=== PATIENT | male | born 1960 | race Caucasian/White ===

== ENCOUNTER 2019-09-25 10:05 | Observation (INO) | payer BC ==
[2019-09-25] MEDS ORDERED: Diltiazem 25 MG/5 ML SDV IVPUSH ONE (10:28)
[2019-09-25] MEDS: Sodium Chloride 0.9% 10 ML Syringe FLUSH PRN ×2 (10:50→11:33)
[2019-09-25 10:57] LABS: CHLORIDE,CL 102 mmol/L (98-107); SODIUM,NA 140 mmol/L (136-145)
[2019-09-25] MEDS ORDERED: Sodium Chloride 0.9% 1,000 ML IV ONE (11:02)
--- NOTE | 2019-09-25 11:22 | EDM.PDOC ---
ED HPI GENERAL MEDICAL PROBLEM - General Chief Complaint: Chest Pain Stated Complaint: CP, dizziness, afib Time Seen by Provider: 09/25/19 10:16 Source of Information: Reports: Patient History Limitations: Reports: No Limitations - History of Present Illness INITIAL COMMENTS - FREE TEXT/NARRATIVE: Patient reports sudden Afib symptoms that started at 9am. Accompanied by lightheadedness/chest pain/SOB. Has had issues with Afib multiple times over the past 20 years per self report. Had ablation performed two years ago at [facility] and had no further episodes until now. Recently had Metoprolol dose increased from 50-100mg daily. No other med changes. No recent other health changes/injuries/illnesses. No new supplements. No specific trigger for today's episode. - Related Data Allergies Allergy/AdvReac Type Severity Reaction Status Date / Time shellfish derived Allergy Hives Verified 09/25/19 10:17 Home Meds: Home Meds Aspirin 325 mg PO DAILY 02/06/14 [History] Cetirizine [ZyrTEC] 10 mg PO DAILY PRN 02/06/14 [History] Lisinopril 10 mg PO DAILY 02/06/14 [History] Metoprolol Succinate 100 mg PO DAILY 02/06/14 [History] Simvastatin [Zocor] 20 mg PO BEDTIME 09/25/19 [History] amLODIPine [Norvasc] 5 mg PO DAILY 09/25/19 [History] Past Medical History Cardiovascular History: Reports: Afib, Hypertension Endocrine/Metabolic History: Reports: Obesity/BMI 30+, Other (See Below) ( Borderline Type 2 DM) Social & Family History - Tobacco Use Smoking Status *Q: Never Smoker - Caffeine Use Caffeine Use: Reports: Soda - Alcohol Use Alcohol Use History: No Alcohol Use Frequency: Rarely - Recreational Drug Use Recreational Drug Use: No Drug Use in Last 12 Months: No ED ROS GENERAL - Review of Systems Review Of Systems: See Below Constitutional: Reports: No Symptoms HEENT: Reports: No Symptoms Respiratory: Reports: Shortness of Breath. Denies: Wheezing, Pleuritic Chest Pain, Cough, Sputum, Hemoptysis Cardiovascular: Reports: Chest Pain, Lightheadedness, Palpitations. Denies: Syncope GI/Abdominal: Reports: No Symptoms : Reports: No Symptoms Musculoskeletal: Reports: No Symptoms (no acute changes from baseline) Skin: Reports: No Symptoms Neurological: Reports: Dizziness. Denies: Confusion, Headache, Paresthesia, Trouble Speaking, Difficulty Walking, Change in Speech Psychiatric: Reports: No Symptoms ED EXAM, GENERAL - Physical Exam Exam: See Below Exam Limited By: No Limitations General Appearance: Alert, WD/WN, No Apparent Distress, Obese Eye Exam: Bilateral Eye: EOMI, PERRL Nose: No: Nasal Deformity, Nasal Swelling, Nasal Drainage Throat/Mouth: Normal Lips, Normal Voice, No Airway Compromise Head: Atraumatic, Normocephalic Neck: Supple, Non-Tender Respiratory/Chest: No Respiratory Distress, Lungs Clear, Normal Breath Sounds, No Accessory Muscle Use, Chest Non-Tender Cardiovascular: Normal Peripheral Pulses, No Murmur, Irregularly Irregular Peripheral Pulses: 2+: Radial (L), Radial (R) GI/Abdominal: Normal Bowel Sounds, Soft, Non-Tender (Male) Exam: Deferred Rectal (Males) Exam: Deferred Back Exam: Normal Inspection Extremities: Normal Range of Motion, Non-Tender, Normal Capillary Refill, Pedal Edema (mild edema bilateral ankles) Neurological: Alert, Oriented, Normal Cognition, Normal Gait, No Motor/Sensory Deficits Psychiatric: Normal Affect, Normal Mood Skin Exam: Warm, Dry, Intact, Normal Color EKG INTERPRETATION EKG Date: 09/25/19 Time: 10:02 Rhythm: A-Fib Rate (Beats/Min): 116 [place]: Normal P-Wave: Absent QRS: Normal ST-T: Normal QT: Normal Course - Orders/Labs/Meds Orders: Active Orders 24 hr Category Date Time Status EKG Documentation Completion [RC] ASDIRECTED Care 09/25/19 10:17 Ordered Sodium Chloride 0.9% [Saline Flush] Med 09/25/19 10:16 Ordered 10 ml FLUSH ASDIRECTED PRN Saline Lock Insert [OM.PC] Stat Oth 09/25/19 10:16 Ordered Medication Orders Aspirin (Aspirin) 325 mg PO DAILY STEVE Cetirizine HCl (Zyrtec) 10 mg PO DAILY PRN PRN Reason: Allergies Diltiazem HCl (Cardizem Cd) 120 mg PO ONETIME ONE Stop: 09/26/19 12:01 Metoprolol Succinate (Toprol Xl) 100 mg PO DAILY STEVE Sodium Chloride (Saline Flush) 10 ml FLUSH ASDIRECTED PRN PRN Reason: Keep Vein Open Last Admin: 09/25/19 11:33 Dose: 10 ml Admin: 09/25/19 10:50 Dose: 10 ml Labs: Laboratory Tests 09/25/19 09/25/19 09/25/19 Range/Units 10:25 10:25 10:25 WBC 5.3 (4.0-10.2) K/uL RBC 5.02 (4.33-5.41) M/uL Hgb 13.8 (13.1-16.8) g/dL Hct 42.8 (39.0-49.0) % MCV 85.3 (84.0-98.0) fL MCH 27.5 L (28.2-33.3) pg MCHC 32.2 (31.7-36.0) g/dL RDW 13.9 (11.2-14.1) % Plt Count 165 (150-350) K/uL Neut % (Auto) 56.5 (45.0-80.0) % Lymph % (Auto) 30.2 (10.0-50.0) % [place] % (Auto) 9.1 (2.0-14.0) % Eos % (Auto) 4.2 (0.0-5.0) % Baso % (Auto) 0.0 (0.0-2.0) % Neut # (Auto) 2.99 (1.40-7.00) K/uL Lymph # (Auto) 1.60 (0.50-3.50) K/uL [place] # (Auto) 0.48 (0.00-1.00) K/uL Eos # (Auto) 0.22 (0.00-0.50) K/uL Baso # (Auto) 0.00 (0.00-0.20) K/uL D-Dimer, Quantitative 329 (0-400) ng/mL Sodium 140 (136-145) mmol/L Potassium 3.7 (3.5-5.1) mmol/L Chloride 102 (98-107) mmol/L Carbon Dioxide 31.8 (21.0-32.0) mmol/L BUN 20 H (7-18) mg/dL Creatinine 0.97 (0.51-1.17) mg/dL Est Cr Clr Drug Dosing TNP Estimated GFR (MDRD) > 60 mL/min Glucose 130 H (74-106) mg/dL Hemoglobin A1c (4.3-5.7) % Calcium 8.9 (8.5-10.1) mg/dL Magnesium 1.8 (1.8-2.4) mg/dL Total Bilirubin 0.4 (0.2-1.0) mg/dL AST 26 (15-37) U/L ALT 27 (12-78) U/L Alkaline Phosphatase 38 L (46-116) IU/L Troponin I 0.000 (0.000-0.056) ng/mL NT-Pro-B Natriuret Pep 61 (0-125) pg/mL Total Protein 7.2 (6.4-8.2) g/dL Albumin 3.4 (3.4-5.0) g/dL TSH, Ultra Sensitive (0.358-3.740) mIU/mL 09/25/19 09/25/19 Range/Units 10:25 10:25 WBC (4.0-10.2) K/uL RBC (4.33-5.41) M/uL Hgb (13.1-16.8) g/dL Hct (39.0-49.0) % MCV (84.0-98.0) fL MCH (28.2-33.3) pg MCHC (31.7-36.0) g/dL RDW (11.2-14.1) % Plt Count (150-350) K/uL Neut % (Auto) (45.0-80.0) % Lymph % (Auto) (10.0-50.0) % [place] % (Auto) (2.0-14.0) % Eos % (Auto) (0.0-5.0) % Baso % (Auto) (0.0-2.0) % Neut # (Auto) (1.40-7.00) K/uL Lymph # (Auto) (0.50-3.50) K/uL [place] # (Auto) (0.00-1.00) K/uL Eos # (Auto) (0.00-0.50) K/uL Baso # (Auto) (0.00-0.20) K/uL D-Dimer, Quantitative (0-400) ng/mL Sodium (136-145) mmol/L Potassium (3.5-5.1) mmol/L Chloride (98-107) mmol/L Carbon Dioxide (21.0-32.0) mmol/L BUN (7-18) mg/dL Creatinine (0.51-1.17) mg/dL Est Cr Clr Drug Dosing Estimated GFR (MDRD) mL/min Glucose (74-106) mg/dL Hemoglobin A1c 6.5 H (4.3-5.7) % Calcium (8.5-10.1) mg/dL Magnesium (1.8-2.4) mg/dL Total Bilirubin (0.2-1.0) mg/dL AST (15-37) U/L ALT (12-78) U/L Alkaline Phosphatase (46-116) IU/L Troponin I (0.000-0.056) ng/mL NT-Pro-B Natriuret Pep (0-125) pg/mL Total Protein (6.4-8.2) g/dL Albumin (3.4-5.0) g/dL TSH, Ultra Sensitive 1.980 (0.358-3.740) mIU/mL Meds: Medications Generic Name Dose Route Start Last Admin Trade Name Freq PRN Reason Stop Dose Admin Aspirin 325 mg 09/26/19 08:00 Aspirin PO DAILY SETVE Cetirizine HCl 10 mg 09/25/19 12:45 Zyrtec PO DAILY PRN Allergies Diltiazem HCl 120 mg 09/26/19 12:00 Cardizem Cd PO 09/26/19 12:01 ONETIME ONE Metoprolol Succinate 100 mg 09/26/19 08:00 Toprol Xl PO DAILY STEVE Sodium Chloride 10 ml 09/25/19 10:16 09/25/19 11:33 Saline Flush FLUSH 10 ml ASDIRECTED PRN Administration Keep Vein Open Discontinued Medications Generic Name Dose Route Start Last Admin Trade Name Freq PRN Reason Stop Dose Admin Diltiazem HCl 20 mg 09/25/19 10:28 09/25/19 10:50 Diltiazem IVPUSH 09/25/19 10:29 20 mg ONETIME ONE Administration Diltiazem HCl 120 mg 09/25/19 12:43 Cardizem Cd PO 09/25/19 12:44 ONETIME ONE Magnesium Sulfate/Dextrose 1 100 mls @ 100 mls/hr 09/25/19 11:00 09/25/19 11: 32 gm/ Premix IV 09/25/19 11:59 100 mls/hr ONETIME ONE Administration Sodium Chloride 1,000 mls @ 999 mls/hr 09/25/19 11:02 09/25/19 11:32 Normal Saline IV 09/25/19 12:02 999 mls/hr .BOLUS ONE Administration - Re-Assessments/Exams Free Text/Narrative Re-Assessment/Exam: Patient received Cardizem IV shortly after arrival. Pulse rate improved. No further SOB/chest discomfort. Dizziness resolved. BP dropped from medication, IV fluids given. EKG showed Afib/RVR. CBC/Chem/Trop/ddimer ordered. Overall unremarkable. TSH/A1C added. Call placed to [facility] and patient reviewed with on-call Graph[employer] Teacher Dr. Rashid. She recommended observation admission and to continue patient on Cardizem. Will hold Lisinopril/Norvasc to avoid hypotension. Continue Metoprolol. He is recommended to follow up with Cardiology in clinic. Will schedule patient for cardiac echo here next week to assess cardiac function and rule out any thrombus formation. Departure - Departure Time of Disposition: 12:35 Disposition: Refer to Observation Condition: Good Clinical Impression: Atrial fibrillation with RVR - Discharge Information *PRESCRIPTION DRUG MONITORING PROGRAM REVIEWED*: Not Applicable *COPY OF PRESCRIPTION DRUG MONITORING REPORT IN PATIENT ILSA: Not Applicable Sepsis Event Note - Focused Exam Date Exam was Performed: 09/25/19 Time Exam was Performed: 13:34 - Problem List & Annotations (1) Atrial fibrillation with RVR SNOMED Code(s): 277706816164211 Code(s): I48.91 - UNSPECIFIED ATRIAL FIBRILLATION Status: Acute Priority : High Current Visit: Yes Annotation/Comment:: 20 year hx Afib. Ablation performed two years ago to address this and has been free of Afib episodes until today. Good rate response to Cardizem. Will monitor patient overnight and continue oral Cardizem. Patient to have cardiac echo performed next Tuesday to screen for thrombus formation given the Afib episode. Patient reviewed with from [facility] Cardiology who is in agreement with plan. He is to follow up with Cardiology clinic. (2) HTN (hypertension) SNOMED Code(s): 29163909 Code(s): I10 - ESSENTIAL (PRIMARY) HYPERTENSION Status: Acute Priority: Low Current Visit: Yes Annotation/Comment:: Observe trends. Continuing Metoprolol but holding Lisinopril and Norvasc while initiating Cardizem for rate control. Qualifiers: Hypertension type: essential hypertension Qualified Code(s): I10 - Essential (primary) hypertension (3) Obesity SNOMED Code(s): 111229701, 584340980 Code(s): E66.9 - OBESITY, UNSPECIFIED Status: Acute Priority: Low Current Visit: Yes Annotation/Comment:: Dietary changes highly encouraged, including cessation of patient's heavy soda consumption. Qualifiers: Obesity type: unspecified obesity type (4) Diabetes mellitus SNOMED Code(s): 23159111 Code(s): E11.9 - TYPE 2 DIABETES MELLITUS WITHOUT COMPLICATIONS Status: Chronic Priority: Low Current Visit: No Annotation/Comment:: A1C 6.5 Dietary/lifestyle changes encouraged. Not currently under medication therapy Qualifiers: Diabetes mellitus type: type 2 - Problem List Review Problem List Initiated/Reviewed/Updated: Yes - My Orders Last 24 Hours: My Active Orders 09/25/19 10:16 Sodium Chloride 0.9% [Saline Flush] 10 ml FLUSH ASDIRECTED PRN Saline Lock Insert [OM.PC] Stat 09/25/19 10:17 EKG Documentation Completion [RC] ASDIRECTED - Assessment/Plan Admission H&P: Please use this note as an admission H&P Last 24 Hours: My Active Orders 09/25/19 10:16 Sodium Chloride 0.9% [Saline Flush] 10 ml FLUSH ASDIRECTED PRN Saline Lock Insert [OM.PC] Stat 09/25/19 10:17 EKG Documentation Completion [RC] ASDIRECTED Assessment:: as above. Stable and suitable for general supervision. Plan: As above. Anticipate 24-48 hour stay. Lisinopril to be discontinued and Cardizem initiated. Telemetry to continue to follow Afib and and recurrence of RVR.
[2019-09-25] MEDS ORDERED: Diltiazem 120 MG Cap.CD PO ONE ×2 (12:43→15:00)
[2019-09-25] MEDS ORDERED: Cetirizine 10 MG Tab PO PRN (12:45)
[2019-09-25 12:46] LABS: HEMOGLOBIN A1C 6.5 % (4.3-5.7)
[2019-09-26] MEDS: Metoprolol Succinate 50 MG Tab.ER PO SCH (07:29)
[2019-09-26] MEDS: Aspirin 325 MG Tab PO SCH (07:31)
[2019-09-26] MEDS: Sodium Chloride 0.9% 10 ML Syringe FLUSH PRN ×2 (07:32→10:34)
[2019-09-26] MEDS ORDERED: FLU Vacc QS2019-20(6MOS+)/PF 60 MCG/0.5 ML SYRINGE IM ONE (08:00)
[2019-09-26 08:21] LABS: CHLORIDE,CL 103 mmol/L (98-107); SODIUM,NA 139 mmol/L (136-145)
--- NOTE | 2019-09-26 09:40 | PCM.PN ---
- General Info Date of Service: 09/26/19 Admission Dx/Problem (Free Text): 1. Atrial fibrillation with rapid ventricular response 2. Hypertension Functional Status: Reports: Pain Controlled, Tolerating Diet, Ambulating, Urinating. Denies: New Symptoms, Incentive Spirometry Pain Score: 0 - Review of Systems General: Reports: No Symptoms (Good). Denies: Fever, Weakness, Fatigue, Malaise , Chills, Night Sweats, Appetite HEENT: Reports: No Symptoms. Denies: Dysphasia, Ear Pain, Eye Pain, Headaches, Post Nasal Drip, Sinus Congestion, Sore Throat, Rhinitis, Visual Changes Pulmonary: Reports: No Symptoms. Denies: Shortness of Breath, Pleuritic Chest Pain, Cough, Sputum, Hemoptysis, Wheezing Cardiovascular: Reports: No Symptoms. Denies: Chest Pain, Palpitations, Dyspnea on Exertion, Orthopnea, Edema, Lightheadedness Gastrointestinal: Reports: No Symptoms, Other (Normal bowel movements earlier today). Denies: Abdominal Pain, Constipation, Decreased Appetite, Diarrhea, Difficulty Swallowing, Flatus, Hematochezia, Melena, Nausea, Vomiting Genitourinary: Reports: No Symptoms. Denies: Dysuria, Frequency, Burning, Pain , Urgency, Incontinence, Hematuria, Retention, Flank Pain Musculoskeletal: Reports: No Symptoms. Denies: Neck Pain, Shoulder Pain, Arm Pain, Back Pain, Leg Pain Skin: Reports: No Symptoms. Denies: Diaphoresis, Bruising Neurological: Reports: No Symptoms. Denies: Confusion, Dizziness, Headache, Numbness, Paresthesia, Tingling, Weakness Psychiatric: Reports: No Symptoms. Denies: Confusion, Agitation, Cravings, Hallucinations - Patient Data Vitals - Most Recent: Last Vital Signs Temp 36.4 C 09/26/19 07:21 Pulse 87 09/26/19 07:29 Resp 17 09/26/19 07:21 BP 136/80 09/26/19 07:29 Pulse Ox 97 09/26/19 07:21 Vital Signs - 24 hr 09/25/19 09/25/19 09/25/19 10:27 10:58 11:13 Temperature [ Temporal] Pulse, Peripheral Pulse, 112 H 79 74 Peripheral [ Pulse Oximetry] Respiratory 19 15 16 Rate Blood Pressure Blood Pressure [Left Upper Arm ] Blood Pressure 129/89 89/55 L 109/79 [Right Upper Arm] O2 Sat by Pulse 99 93 L 93 L Oximetry 09/25/19 09/25/19 09/25/19 11:30 11:57 12:13 Temperature [ Temporal] Pulse, Peripheral Pulse, 79 75 78 Peripheral [ Pulse Oximetry] Respiratory 18 19 19 Rate Blood Pressure Blood Pressure [Left Upper Arm ] Blood Pressure 102/62 109/63 105/66 [Right Upper Arm] O2 Sat by Pulse 95 95 95 Oximetry 09/25/19 09/25/19 09/25/19 12:30 12:45 12:58 Temperature [ Temporal] Pulse, Peripheral Pulse, 78 75 75 Peripheral [ Pulse Oximetry] Respiratory 19 18 18 Rate Blood Pressure Blood Pressure [Left Upper Arm ] Blood Pressure 103/61 93/65 113/66 [Right Upper Arm] O2 Sat by Pulse 95 95 94 L Oximetry 09/25/19 09/25/19 09/25/19 13:10 14:57 15:14 Temperature [ 37.1 C 37.1 C Temporal] Pulse, 77 Peripheral Pulse, 72 117 H Peripheral [ Pulse Oximetry] Respiratory 17 19 Rate Blood Pressure 117/65 Blood Pressure [Left Upper Arm ] Blood Pressure 108/59 L 151/93 H [Right Upper Arm] O2 Sat by Pulse 95 99 Oximetry 09/25/19 09/25/19 09/25/19 15:33 16:51 19:15 Temperature [ 36.6 C 36.6 C Temporal] Pulse, Peripheral Pulse, 77 82 81 Peripheral [ Pulse Oximetry] Respiratory 14 20 14 Rate Blood Pressure Blood Pressure [Left Upper Arm ] Blood Pressure 117/65 131/86 117/78 [Right Upper Arm] O2 Sat by Pulse 93 L 95 94 L Oximetry 09/25/19 09/26/19 09/26/19 23:12 04:00 07:21 Temperature [ 36.8 C 36.8 C 36.4 C Temporal] Pulse, Peripheral Pulse, 80 81 87 Peripheral [ Pulse Oximetry] Respiratory 16 16 17 Rate Blood Pressure Blood Pressure 143/97 H 149/92 H 136/80 [Left Upper Arm ] Blood Pressure [Right Upper Arm] O2 Sat by Pulse 96 95 97 Oximetry 09/26/19 07:29 Temperature [ Temporal] Pulse, 87 Peripheral Pulse, Peripheral [ Pulse Oximetry] Respiratory Rate Blood Pressure 136/80 Blood Pressure [Left Upper Arm ] Blood Pressure [Right Upper Arm] O2 Sat by Pulse Oximetry Weight - Most Recent: 138.709 kg I&O - Last 24 Hours: Intake & Output 09/25/19 09/26/19 09/26/19 22:59 06:59 14:59 Intake Total 200 600 Balance 200 600 Imaging Impressions - Last 24 Hours: secured entrance monitor shows atrial fibrillation with average heart rate in the 70s to 110s with no ectopy or arrhythmia. Lab Results Last 24 Hours: Laboratory Results - last 24 hr 09/25/19 09/25/19 09/25/19 Range/Units 10:25 10:25 10:25 WBC 5.3 (4.0-10.2) K/uL RBC 5.02 (4.33-5.41) M/uL Hgb 13.8 (13.1-16.8) g/dL Hct 42.8 (39.0-49.0) % MCV 85.3 (84.0-98.0) fL MCH 27.5 L (28.2-33.3) pg MCHC 32.2 (31.7-36.0) g/dL RDW 13.9 (11.2-14.1) % Plt Count 165 (150-350) K/uL Neut % (Auto) 56.5 (45.0-80.0) % Lymph % (Auto) 30.2 (10.0-50.0) % [place] % (Auto) 9.1 (2.0-14.0) % Eos % (Auto) 4.2 (0.0-5.0) % Baso % (Auto) 0.0 (0.0-2.0) % Neut # (Auto) 2.99 (1.40-7.00) K/uL Lymph # (Auto) 1.60 (0.50-3.50) K/uL [place] # (Auto) 0.48 (0.00-1.00) K/uL Eos # (Auto) 0.22 (0.00-0.50) K/uL Baso # (Auto) 0.00 (0.00-0.20) K/uL D-Dimer, Quantitative 329 (0-400) ng/mL Sodium 140 (136-145) mmol/L Potassium 3.7 (3.5-5.1) mmol/L Chloride 102 (98-107) mmol/L Carbon Dioxide 31.8 (21.0-32.0) mmol/L BUN 20 H (7-18) mg/dL Creatinine 0.97 (0.51-1.17) mg/dL Est Cr Clr Drug Dosing TNP Estimated GFR (MDRD) > 60 mL/min Glucose 130 H (74-106) mg/dL Hemoglobin A1c (4.3-5.7) % Calcium 8.9 (8.5-10.1) mg/dL Magnesium 1.8 (1.8-2.4) mg/dL Total Bilirubin 0.4 (0.2-1.0) mg/dL AST 26 (15-37) U/L ALT 27 (12-78) U/L Alkaline Phosphatase 38 L (46-116) IU/L Troponin I 0.000 (0.000-0.056) ng/mL NT-Pro-B Natriuret Pep 61 (0-125) pg/mL Total Protein 7.2 (6.4-8.2) g/dL Albumin 3.4 (3.4-5.0) g/dL TSH, Ultra Sensitive (0.358-3.740) mIU/mL 09/25/19 09/25/19 09/26/19 Range/Units 10:25 10:25 07:14 WBC (4.0-10.2) K/uL RBC (4.33-5.41) M/uL Hgb (13.1-16.8) g/dL Hct (39.0-49.0) % MCV (84.0-98.0) fL MCH (28.2-33.3) pg MCHC (31.7-36.0) g/dL RDW (11.2-14.1) % Plt Count (150-350) K/uL Neut % (Auto) (45.0-80.0) % Lymph % (Auto) (10.0-50.0) % [place] % (Auto) (2.0-14.0) % Eos % (Auto) (0.0-5.0) % Baso % (Auto) (0.0-2.0) % Neut # (Auto) (1.40-7.00) K/uL Lymph # (Auto) (0.50-3.50) K/uL Med[place] # (Auto) (0.00-1.00) K/uL Eos # (Auto) (0.00-0.50) K/uL Baso # (Auto) (0.00-0.20) K/uL D-Dimer, Quantitative (0-400) ng/mL Sodium 139 (136-145) mmol/L Potassium 4.3 (3.5-5.1) mmol/L Chloride 103 (98-107) mmol/L Carbon Dioxide 30.4 (21.0-32.0) mmol/L BUN 14 (7-18) mg/dL Creatinine 0.96 (0.51-1.17) mg/dL Est Cr Clr Drug Dosing 109.72 Estimated GFR (MDRD) > 60 mL/min Glucose 118 H (74-106) mg/dL Hemoglobin A1c 6.5 H (4.3-5.7) % Calcium 8.6 (8.5-10.1) mg/dL Magnesium (1.8-2.4) mg/dL Total Bilirubin (0.2-1.0) mg/dL AST (15-37) U/L ALT (12-78) U/L Alkaline Phosphatase (46-116) IU/L Troponin I 0.000 (0.000-0.056) ng/mL NT-Pro-B Natriuret Pep 904 H (0-125) pg/mL Total Protein (6.4-8.2) g/dL Albumin (3.4-5.0) g/dL TSH, Ultra Sensitive 1.980 (0.358-3.740) mIU/mL 09/26/19 Range/Units 07:14 WBC 6.7 (4.0-10.2) K/uL RBC 5.35 (4.33-5.41) M/uL Hgb 14.5 (13.1-16.8) g/dL Hct 45.4 (39.0-49.0) % MCV 84.9 (84.0-98.0) fL MCH 27.1 L (28.2-33.3) pg MCHC 31.9 (31.7-36.0) g/dL RDW 14.1 (11.2-14.1) % Plt Count 174 (150-350) K/uL Neut % (Auto) 63.8 (45.0-80.0) % Lymph % (Auto) 23.8 (10.0-50.0) % [place] % (Auto) 7.9 (2.0-14.0) % Eos % (Auto) 4.2 (0.0-5.0) % Baso % (Auto) 0.3 (0.0-2.0) % Neut # (Auto) 4.30 (1.40-7.00) K/uL Lymph # (Auto) 1.60 (0.50-3.50) K/uL [place] # (Auto) 0.53 (0.00-1.00) K/uL Eos # (Auto) 0.28 (0.00-0.50) K/uL Baso # (Auto) 0.02 (0.00-0.20) K/uL D-Dimer, Quantitative (0-400) ng/mL Sodium (136-145) mmol/L Potassium (3.5-5.1) mmol/L Chloride (98-107) mmol/L Carbon Dioxide (21.0-32.0) mmol/L BUN (7-18) mg/dL Creatinine (0.51-1.17) mg/dL Est Cr Clr Drug Dosing Estimated GFR (MDRD) mL/min Glucose (74-106) mg/dL Hemoglobin A1c (4.3-5.7) % Calcium (8.5-10.1) mg/dL Magnesium (1.8-2.4) mg/dL Total Bilirubin (0.2-1.0) mg/dL AST (15-37) U/L ALT (12-78) U/L Alkaline Phosphatase (46-116) IU/L Troponin I (0.000-0.056) ng/mL NT-Pro-B Natriuret Pep (0-125) pg/mL Total Protein (6.4-8.2) g/dL Albumin (3.4-5.0) g/dL TSH, Ultra Sensitive (0.358-3.740) mIU/mL Terence Results Last 24 Hours: None Med Orders - Current: Current Medications Aspirin (Aspirin) 325 mg PO DAILY [facility] Last Admin: 09/26/19 07:31 Dose: 325 mg Cetirizine HCl (Zyrtec) 10 mg PO DAILY PRN PRN Reason: Allergies Diltiazem HCl (Cardizem Cd) 120 mg PO ONETIME ONE Stop: 09/26/19 12:01 Metoprolol Succinate (Toprol Xl) 100 mg PO DAILY [facility]E Last Admin: 09/26/19 07:29 Dose: 100 mg Sodium Chloride (Saline Flush) 10 ml FLUSH ASDIRECTED PRN PRN Reason: Keep Vein Open Last Admin: 09/26/19 07:32 Dose: 10 ml Discontinued Medications Diltiazem HCl (Diltiazem) 20 mg IVPUSH ONETIME ONE Stop: 09/25/19 10:29 Last Admin: 09/25/19 10:50 Dose: 20 mg Diltiazem HCl (Cardizem Cd) 120 mg PO ONETIME ONE Stop: 09/25/19 12:44 Last Admin: 09/25/19 15:14 Dose: Not Given Diltiazem HCl (Cardizem Cd) 120 mg PO ONETIME ONE Stop: 09/25/19 15:01 Last Admin: 09/25/19 15:14 Dose: 120 mg Magnesium Sulfate/Dextrose 1 (gm/ Premix) 100 mls @ 100 mls/hr IV ONETIME ONE Stop: 09/25/19 11:59 Last Admin: 09/25/19 11:32 Dose: 100 mls/hr Sodium Chloride (Normal Saline) 1,000 mls @ 999 mls/hr IV .BOLUS ONE Stop: 09/25/19 12:02 Last Admin: 09/25/19 11:32 Dose: 999 mls/hr Influenza Virus Vaccine (Pharmacy To Dose - Influenza Vaccine) 1 each IM ONETIME ONE Stop: 09/25/19 14:55 Influenza Virus Vaccine (Fluzone Quad [id number] Syringe) 60 mcg IM .ONCE ONE Stop: 09/26/19 08:01 Last Admin: 09/26/19 07:31 Dose: 60 mcg - Exam Quality Assessment: DVT Prophylaxis. No: Supplemental Oxygen, Central Line/PICC , Urine Catheter, Skin Breakdown, Restraints General: Alert, Oriented, Cooperative, No Acute Distress HEENT: Pupils Equal, Pupils Reactive, EOMI, Mucous Membr. Moist/Broussard, Scleral Icterus Neck: Supple, Trachea Midline, No JVD, No Thyromegaly, +2 Carotid Pulse wo Bruit. No: Lymphadenopathy Lungs: Normal Respiratory Effort, Rales (Mild bilateral basilar rales). No: Rhonchi, Rub Cardiovascular: Regular Rate, No Murmurs, Irregular Rhythm. No: Gallops, Rubs GI/Abdominal Exam: Normal Bowel Sounds, Soft, Non-Tender, No Organomegaly, No Distention, No Abnormal Bruit, No Mass, Other (Obese). No: Guarding (Male) Exam: Deferred Back Exam: Normal Inspection, Full Range of Motion. No: CVA Tenderness (L), CVA Tenderness (R), Muscle Spasm Extremities: Normal Inspection, Normal Range of Motion, Non-Tender, No Pedal Edema, Normal Capillary Refill. No: Danii's Sign Peripheral Pulses: 2+: Radial (L), Radial (R), Dorsalis Pedis (L), Dorsalis Pedis (R) Skin: Warm, Dry, Intact, Other (Multiple tattoos). No: Ecchymosis Neurological: No New Focal Deficit Psy/Mental Status: Alert, Normal Affect, Normal Mood. No: Agitated, Hallucinations, Withdrawal Symptoms EKG INTERPRETATION EKG Date: 09/26/19 Time: 07:36 Rhythm: A-Fib Rate (Beats/Min): 94 Benoit: Normal P-Wave: Variable QRS: Wide (0.10 seconds representing repolarization changes.) ST-T: Normal QT: Normal CO/PQ Interval: Variable Comparison: No Change (Last EKG on 09/25/19) EKG Interpretation Comments: 1. Atrial fibrillation 2. Repolarization changes Sepsis Event Note - Evaluation Sepsis Screening Result: No Definite Risk - Focused Exam Vital Signs: Vital Signs Temp Pulse Pulse Resp BP BP Pulse Ox 09/26/19 07:29 87 136/80 09/26/19 07:21 36.4 C 87 17 136/80 97 09/26/19 04:00 36.8 C 81 16 149/92 H 95 09/25/19 23:12 36.8 C 80 16 143/97 H 96 Date Exam was Performed: 09/26/19 Time Exam was Performed: 10:06 - Problem List & Annotations (1) Atrial fibrillation with RVR SNOMED Code(s): 751657605006900 Code(s): I48.91 - UNSPECIFIED ATRIAL FIBRILLATION Status: Acute Priority : High Current Visit: Yes Annotation/Comment:: Occasional persistent mild breakthrough tachycardia. His Cardizem CD will be increased and given in the p.m. on a regular basis. Previous high dose of Cardizem CD was required by patient history. He does have a 20 year history of Afib. with cardiac ablation Ablation performed two years ago. Per his history he has been free of Afib episodes until 09/25/19. Good rate response to IV Cardizem in the emergency room. Patient to have cardiac echo performed next Tuesday to screen for thrombus formation given the Afib episode. Patient case was reviewed by Dr. Martinez reviewed with from [facility], who is in agreement with plan. He is to follow up with Cardiology clinic after discharge. TSH normal on 09/25. Consider reinitiation of Coumadin and/or initiation of Eliquis secondary to persistent atrial fibrillation. Subcutaneous Lovenox for now. (2) CHF (congestive heart failure) SNOMED Code(s): 44885886 Code(s): I50.9 - HEART FAILURE, UNSPECIFIED Status: Acute Priority: High Current Visit: Yes Onset Date: 09/26/19 Qualifiers: Heart failure type: unspecified Annotation/Comment:: Mildly elevated BNP elevation with probable mild CHF secondary to recent recurrent atrial fibrillation with rapid ventricular response. Reinitiate previously held lisinopril therapy. Initiate low-dose IV Lasix therapy during this hospitalization. Patient will likely not need oral Lasix at discharge. Echocardiogram on an outpatient basis. Further cardiology consultation depending on his clinical course. Negative workup for acute NM at this point. Repeat x-rays , EKG and blood work in the a.m. (3) Peptic reflux disease SNOMED Code(s): 019474763 Code(s): K21.9 - GASTRO-ESOPHAGEAL REFLUX DISEASE WITHOUT ESOPHAGITIS Status: Chronic Priority: Medium Current Visit: Yes Annotation/Comment:: Apparent history of GERD with esophageal stenosis and recent EGD with dilatation and colonoscopy performed at [facility] in [place] by patient history. Nonsymptomatic at this time. Continue to observe closely by regular providers. (4) HTN (hypertension) SNOMED Code(s): 90730074 Code(s): I10 - ESSENTIAL (PRIMARY) HYPERTENSION Status: Acute Priority: Medium Current Visit: Yes Qualifiers: Hypertension type: essential hypertension Qualified Code(s): I10 - Essential (primary) hypertension Annotation/Comment:: Pressure occasionally elevated with holding of his previous lisinopril and Norvasc. Norvasc will be discontinued on a permanent basis with continuation of Cardizem, which has previously been effective in the past as above. (5) Obesity SNOMED Code(s): 123568231, 016670147 Code(s): E66.9 - OBESITY, UNSPECIFIED Status: Acute Priority: Medium Current Visit: Yes Qualifiers: Obesity type: due to excess calories Obesity classification: adult class 2 (BMI 35 - 39.9) Serious obesity comorbidity presence: without serious comorbidity Annotation/Comment:: Dietary changes highly encouraged, including cessation of patient's heavy soda consumption. Dietary information provided at discharge. (6) Diabetes mellitus SNOMED Code(s): 69983671 Code(s): E11.9 - TYPE 2 DIABETES MELLITUS WITHOUT COMPLICATIONS Status: Chronic Priority: Medium Current Visit: Yes Qualifiers: Diabetes mellitus type: type 2 Diabetes mellitus complication status: without complication Annotation/Comment:: Glycosylated hemoglobin 6.5 percent on 09/25. Weight Loss in moderation strongly advisable.Dietary/lifestyle changes encouraged. Not currently under medication therapy with continued close follow-up by his regular provider. (7) Hyperlipidemia SNOMED Code(s): 89689281 Code(s): E78.5 - HYPERLIPIDEMIA, UNSPECIFIED Status: Acute Priority: Medium Current Visit: Yes Qualifiers: Hyperlipidemia type: unspecified Qualified Code(s): E78.5 - Hyperlipidemia , unspecified Annotation/Comment:: Dietary changes and weight loss as above. Continue close observation by his regular provider. Lipid panel in the a.m. (8) Allergic rhinitis SNOMED Code(s): 05095754 Code(s): J30.9 - ALLERGIC RHINITIS, UNSPECIFIED Status: Chronic Priority : Medium Current Visit: Yes Qualifiers: Allergic rhinitis trigger: unspecified Allergic rhinitis seasonality: unspecified Qualified Code(s): J30.9 - Allergic rhinitis, unspecified Annotation/Comment:: Stable by history with current medical therapy. - Problem List Review Problem List Initiated/Reviewed/Updated: Yes - Assessment Assessment:: As above - Plan Plan:: As above. Extensive precautions were given to the patient, who is in agreement with the treatment plan. Additional 24 hours of observation on telemetry with continued medication adjustments as above. Planned hospital discharge tomorrow.
[2019-09-26] MEDS ORDERED: Enoxaparin 40 MG/0.4 ML Syringe SUBCUT ONE (09:57)
[2019-09-26] MEDS: Furosemide 40 MG/4 ML VIAL IVPUSH SCH ×2 (10:34→22:24)
[2019-09-26] MEDS: Potassium Chloride 20 MEQ Tab.ER PO SCH ×2 (10:34→17:35)
[2019-09-26] MEDS ORDERED: Diltiazem 120 MG Cap.CD PO ONE (12:00)
[2019-09-26] MEDS ORDERED: Lisinopril 10 MG Tab PO SCH (18:00)
[2019-09-26] MEDS ORDERED: Diltiazem 180 MG Cap.CD PO SCH (18:00)
[2019-09-27] MEDS: Metoprolol Succinate 50 MG Tab.ER PO SCH (07:36)
[2019-09-27] MEDS: Potassium Chloride 20 MEQ Tab.ER PO SCH (07:37)
[2019-09-27] MEDS: Aspirin 325 MG Tab PO SCH (07:37)
[2019-09-27 08:14] LABS: CHLORIDE,CL 104 mmol/L (98-107); SODIUM,NA 142 mmol/L (136-145)
[2019-09-27] MEDS ORDERED: Lisinopril 10 MG Tab PO SCH (08:45)
--- NOTE | 2019-09-27 09:02 | PCM.DCSUM1 ---
Discharge Summary - Hospital Course HPI Initial Comments: See emergency room note/admission H&P Brief History: See emergency room note/admission H&P Diagnosis: Stroke: No Modified [place] Scale: No Symptoms at All Modified [place] Scale Score: 0 - Discharge Data Discharge Date: 09/27/19 Discharge Disposition: Home, Self-Care 01 Condition: Good - Referral to Home Health Primary Care Physician: PCP Unknown - Discharge Diagnosis/Problem(s) (1) Atrial fibrillation with RVR SNOMED Code(s): 407325522325734 ICD Code: I48.91 - UNSPECIFIED ATRIAL FIBRILLATION Status: Acute Priority : High Current Visit: Yes Problem Details: The patient has converted back to normal sinus rhythm without any extrasystoles after adjustments of medications on 09/26, including additional increase in his oral diltiazem therapy. Note that on 09/26 there was still some occasional persistent mild breakthrough tachycardia. His Cardizem CD was increased to 180 mg and was initiated given in the p.m. Previous high dose of Cardizem CD was required by patient history. He does have a 20 year history of Afib. with cardiac ablation performed two years ago. Per his history he has been free of Afib episodes until 09/25/19. Good rate response to IV Cardizem in the emergency room. Patient will be scheduled for an echocardiogram which will be conducted this facility on 10/02 as a screen for thrombus formation given his Afib episode and also CHF with hypoxia with activity. Patient case was reviewed by Dr. Martinez on 09/25 with from [facility], who is in agreement with plan. He is to follow up with Cardiology clinic after discharge with echocardiogram results also to be sent to that facility. TSH normal on 09/25. Consider reinitiation of Coumadin and/or initiation of Eliquis secondary to persistent breakthrough atrial fibrillation prior to admission, although his hypoxia with exercise may have contributed to this recurrence. Subcutaneous Lovenox was given during this hospitalization with waterworks supervisor to decide whether further anticoagulation is required. Consider Cardiolite stress test depending on his clinical course. (2) CHF (congestive heart failure) SNOMED Code(s): 06632291 ICD Code: I50.9 - HEART FAILURE, UNSPECIFIED Status: Acute Priority: High Current Visit: Yes Onset Date: 09/26/19 Problem Details: Mildly elevated BNP elevation with probable mild CHF secondary to recent recurrent atrial fibrillation with rapid ventricular response. BNP was normal at discharge on 09/27 with no significant clinical evidence of remaining CHF and the patient likely back to his normal baseline. Note O2 desaturation to 88% while walking down the halls on room air, which was symptomatic with some dyspnea, with improvement to 92% with activity on O2 at 2 L/min by nasal cannula. Echocardiogram will be conducted as above. His lisinopril therapy will be increased to a twice daily basis at discharge with close follow-up by his regular provider. Overall excellent results with low-dose IV Lasix and oral potassium chloride therapy, which were initiated on 09/26. Patient will likely not need oral Lasix at discharge, although this may be required at a later date depending on his clinical course. Negative workup for acute [place] at this point with no chest pain or anginal complaints during this hospitalizations.. Repeat x-rays , EKG and blood work by his regular provider at follow-up. [facility] has arranged home O2 therapy. Consider COPD component secondary to his previous tobacco use with patient possibly benefiting from PFTs once his cardiac status has been determined. Qualifiers: Heart failure type: unspecified (3) Peptic reflux disease SNOMED Code(s): 672215508 ICD Code: K21.9 - GASTRO-ESOPHAGEAL REFLUX DISEASE WITHOUT ESOPHAGITIS Status: Chronic Priority: Medium Current Visit: Yes Problem Details: Apparent history of GERD with esophageal stenosis and recent EGD with dilatation and colonoscopy performed at [facility] in [place] by patient history. Nonsymptomatic at this time. Continue to observe closely by regular providers. (4) HTN (hypertension) SNOMED Code(s): 54467730 ICD Code: I10 - ESSENTIAL (PRIMARY) HYPERTENSION Status: Acute Priority: Medium Current Visit: Yes Problem Details: Blood pressures were occasionally elevated in this hospitalization with patient tolerating lisinopril and IV Lasix therapy well. Norvasc will be discontinued on a permanent basis with continuation of Cardizem, which has previously been effective in the past as above. Note increase of lisinopril therapy at discharge. Qualifiers: Hypertension type: essential hypertension Qualified Code(s): I10 - Essential (primary) hypertension (5) Obesity SNOMED Code(s): 333263487, 799009616 ICD Code: E66.9 - OBESITY, UNSPECIFIED Status: Acute Priority: Medium Current Visit: Yes Problem Details: Dietary changes highly encouraged, including cessation of patient's heavy soda caffeine consumption. Dietary information provided at discharge. Qualifiers: Obesity type: due to excess calories Obesity classification: adult class 2 (BMI 35 - 39.9) Serious obesity comorbidity presence: without serious comorbidity (6) Diabetes mellitus SNOMED Code(s): 14216389 ICD Code: E11.9 - TYPE 2 DIABETES MELLITUS WITHOUT COMPLICATIONS Status: Chronic Priority: Medium Current Visit: Yes Problem Details: Glycosylated hemoglobin 6.5 percent on 09/25. Weight Loss in moderation strongly advisable.Dietary/lifestyle changes encouraged. Not currently under medication therapy with continued close follow-up by his regular provider. Qualifiers: Diabetes mellitus type: type 2 Diabetes mellitus complication status: without complication (7) Hyperlipidemia SNOMED Code(s): 43355777 ICD Code: E78.5 - HYPERLIPIDEMIA, UNSPECIFIED Status: Acute Priority: Medium Current Visit: Yes Problem Details: Dietary changes and weight loss as above. Note dyslipidemia on 09/27 with continuation of Zocor therapy for now. Increase this medication with caution secondary to his diltiazem, however. Lipid panel and glycosylated hemoglobin should be repeated in about 3 months. Qualifiers: Hyperlipidemia type: unspecified Qualified Code(s): E78.5 - Hyperlipidemia , unspecified (8) Allergic rhinitis SNOMED Code(s): 90342191 ICD Code: J30.9 - ALLERGIC RHINITIS, UNSPECIFIED Status: Chronic Priority : Medium Current Visit: Yes Problem Details: Stable by history with current medical therapy. Qualifiers: Allergic rhinitis trigger: unspecified Allergic rhinitis seasonality: unspecified Qualified Code(s): J30.9 - Allergic rhinitis, unspecified - Patient Summary/Data Operative Procedure(s) Performed: None Complications: None Consults: Cardiology consultation as above. Labs Pending at D/C: Final chest x-ray report from 09/27/2019 Recommended Follow-up Testing/Procedures: As per discharge instructions Planned Operative Procedure(s) after DC: None Hospital Course: The patient was placed in observation status on telemetry with negative work-up for acute [place] as above. Patient did develop some mild CHF secondary to his recurrent atrial fibrillation prior to admission although excellent response to IV Lasix as above. Patient did convert back to normal sinus rhythm after adjustment of medications as above. Note mild hypoxia with mild exercise/ walking prior to discharge with patient likely back to his normal baseline. Follow-up with cardiology and his regular providers as above. - Patient Instructions Diet: Heart Healthy Diet Diet, Other: 1500-calorie ADA Fluid Restriction: 2000 mL Activity: No Strenuous Activities (50 % maximum exercise restriction will release to by his) Driving: May Drive Today Showering/Bathing: May Shower Notify Provider of: Fever, Increased Pain, Nausea and/or Vomiting Other/Special Instructions: 1. Followup with your regular provider in 7 days as directed for reevaluation and recommended repeat EKG, chest x-ray, CBC, basic metabolic panel, magnesium level, BNP, CK, CK-MB, and cardiac index. Bring these discharge instructions with you to that visit. 2. Otherwise follow -up with cardiology department at [facility] in about 10-14 days for reevaluation and possible further adjustment of your medications, cardiac work-up, etc. Discuss possible reinitiation of Coumadin versus Eliquis therapy at that time with your waterworks supervisor. 3. Weight loss and exercise in moderation as discussed. 4. Decrease caffeine intake as discussed. 5. Recommend repeat fasting lipid profile and glycosylated hemoglobin in 3 months. 6. Echocardiogram will be conducted in this facility on 10/02 with results to be provided to your regular provider and waterworks supervisor. 7. Immediately after this visit verify that your cellular telephone's voicemail has been activated and is empty. Also verify that your home telephone's answering machine is operating properly and has space to receive messages. Note that it is sometimes necessary for us to be able to contact you at a later date to discuss your medical care. 8. Please remember that we are ALWAYS here for you and want to answer any questions you may have. Feel free to call the hospital any time and we call you back ARLETTE. 9. Strict compliance with O2 with exercise at 2 L/min by nasal cannula until otherwise directed. 10. Work excuse- See Form. 11. Your regular provider may consider lung function tests/PFTs depending on your cardiac work-up as above. - Discharge Plan *PRESCRIPTION DRUG MONITORING PROGRAM REVIEWED*: Not Applicable *COPY OF PRESCRIPTION DRUG MONITORING REPORT IN PATIENT ILSA: Not Applicable Prescriptions/Med Rec: Diltiazem [Cardizem CD] 180 mg PO QPM #30 cap.er lisinopriL [Prinivil] 10 mg PO BID #30 tablet Home Medications: Home Meds Aspirin 325 mg PO DAILY 02/06/14 [History] Cetirizine [ZyrTEC] 10 mg PO DAILY PRN 02/06/14 [History] Metoprolol Succinate 100 mg PO DAILY 02/06/14 [History] Simvastatin [Zocor] 20 mg PO BEDTIME 09/25/19 [History] Diltiazem [Cardizem CD] 180 mg PO QPM #30 cap.er 09/27/19 [Rx] lisinopriL [Prinivil] 10 mg PO BID #30 tablet 09/27/19 [Rx] Oxygen Therapy Mode: Nasal Cannula Oxygen Flow Rate (L/min): 2 (With activity) Patient Handouts: Furosemide tablets, Potassium chloride tablets, extended- release tablets or capsules, Enoxaparin injection, Heart Failure, Atrial Fibrillation Forms: ED Department Discharge Referrals: PCP,Unknown [Primary Care Provider] - - Discharge Summary/Plan Comment DC Time >30 min.: Yes (Coordination of care ) Discharge Summary/Plan Comment: As above. Extensive precautions were given to the patient, who is in agreement with the treatment plan. See Patient Instructions for further treatment and plan. - General Info Date of Service: 09/27/19 Admission Dx/Problem (Free Text: Atrial fibrillation with rapid ventricular response Functional Status: Reports: Pain Controlled, Tolerating Diet, Ambulating, Urinating, New Symptoms (Dyspnea with ambulation). Denies: Incentive Spirometry Numeric/FACES Score: 0 - Review of Systems General: Reports: Other (Dyspnea with ambulation as above). Denies: Fever, Weakness, Fatigue, Malaise, Chills, Night Sweats, Appetite (Good) HEENT: Reports: No Symptoms. Denies: Ear Pain, Eye Pain, Headaches, Post Nasal Drip, Sinus Congestion, Sore Throat, Rhinitis, Visual Changes Pulmonary: Reports: Shortness of Breath. Denies: Pleuritic Chest Pain, Cough, Sputum, Hemoptysis, Wheezing Cardiovascular: Reports: Dyspnea on Exertion. Denies: Chest Pain, Palpitations , Orthopnea, Edema (Resolved), Lightheadedness Gastrointestinal: Reports: No Symptoms, Other (Normal bowel movement earlier this morning). Denies: Abdominal Pain, Constipation, Decreased Appetite, Diarrhea, Difficulty Swallowing, Flatus, Hematochezia, Melena, Nausea, Vomiting Genitourinary: Reports: No Symptoms. Denies: Dysuria, Frequency, Burning, Pain , Urgency, Incontinence, Hematuria, Retention, Flank Pain Musculoskeletal: Reports: No Symptoms. Denies: Neck Pain, Shoulder Pain, Arm Pain, Back Pain, Leg Pain Skin: Reports: No Symptoms. Denies: Diaphoresis, Bruising Neurological: Reports: No Symptoms. Denies: Confusion, Dizziness, Numbness, Paresthesia, Tingling, Difficulty Walking Psychiatric: Reports: No Symptoms. Denies: Confusion, Depression, Anxiety, Agitation, Cravings, Hallucinations - Patient Data Vitals - Most Recent: Last Vital Signs Temp 36.2 C 09/27/19 08:00 Pulse 71 09/27/19 08:00 Resp 16 09/27/19 08:00 BP 130/81 09/27/19 08:00 Pulse Ox 95 09/27/19 08:00 Vital Signs - 24 hr 09/26/19 09/26/19 09/26/19 11:11 16:00 17:35 Temperature [ 36.5 C 36.9 C Temporal] Pulse, Peripheral Pulse, 89 71 Peripheral [ Pulse Oximetry] Respiratory 16 16 Rate Blood Pressure 137/91 H Blood Pressure 154/88 H 137/91 H [Left Upper Arm ] O2 Sat by Pulse 97 96 Oximetry 09/26/19 09/27/19 09/27/19 20:00 07:36 08:00 Temperature [ 37.0 C 36.2 C Temporal] Pulse, 71 Peripheral Pulse, 71 71 Peripheral [ Pulse Oximetry] Respiratory 16 16 Rate Blood Pressure 130/81 Blood Pressure 139/85 130/81 [Left Upper Arm ] O2 Sat by Pulse 94 L 95 Oximetry Weight - Most Recent: 138.709 kg I&O - Last 24 hours: Intake & Output 09/26/19 09/27/19 09/27/19 22:59 06:59 14:59 Intake Total 950 Output Total 1030 Balance -80 Imaging Impressions - Last 24 hrs: traffic monitor specialist showed conversion from previous atrial fibrillation to normal sinus rhythm with average heart rate in the 70s somewhat increased to the 80s with ambulation, however no recurrence of his atrial fibrillation or other extrasystoles noted including with ambulation. Chest x-ray, PA and lateral, 09/27/2019 showed some mild prominence of the proximal aortic arch with borderline pulmonary obstructive disease with possible pulmonary hypertension and/or borderline centralized CHF. No pulmonary infiltrates with mild right middle lobe atelectasis. No pneumothorax. Moderate osteoarthritic changes noted. Lab Results - Last 24 hrs: Laboratory Results - last 24 hr 09/27/19 09/27/19 09/27/19 Range/Units 07:28 07:28 07:28 WBC 6.6 (4.0-10.2) K/uL RBC 5.65 H (4.33-5.41) M/uL Hgb 15.5 (13.1-16.8) g/dL Hct 47.6 (39.0-49.0) % MCV 84.2 (84.0-98.0) fL MCH 27.4 L (28.2-33.3) pg MCHC 32.6 (31.7-36.0) g/dL RDW 14.4 H (11.2-14.1) % Plt Count 173 (150-350) K/uL Neut % (Auto) 69.9 (45.0-80.0) % Lymph % (Auto) 20.9 (10.0-50.0) % [place] % (Auto) 6.1 (2.0-14.0) % Eos % (Auto) 2.9 (0.0-5.0) % Baso % (Auto) 0.2 (0.0-2.0) % Neut # (Auto) 4.61 (1.40-7.00) K/uL Lymph # (Auto) 1.38 (0.50-3.50) K/uL [place] # (Auto) 0.40 (0.00-1.00) K/uL Eos # (Auto) 0.19 (0.00-0.50) K/uL Baso # (Auto) 0.01 (0.00-0.20) K/uL PT 10.7 (9.5-12.0) SEC INR 1.0 APTT 30.3 (21.0-31.3) SEC Sodium 142 (136-145) mmol/L Potassium 4.2 (3.5-5.1) mmol/L Chloride 104 (98-107) mmol/L Carbon Dioxide 29.9 (21.0-32.0) mmol/L BUN 13 (7-18) mg/dL Creatinine 0.96 (0.51-1.17) mg/dL Est Cr Clr Drug Dosing 78.18 mL/min Estimated GFR (MDRD) > 60 mL/min Glucose 120 H (74-106) mg/dL Calcium 9.0 (8.5-10.1) mg/dL Creatine Kinase 112 (26-308) U/L Creatine Kinase Index 1.0 (0.0-2.5) % CK-MB (CK-2) 1.10 (0.00-3.60) ng/mL Troponin I 0.000 (0.000-0.056) ng/mL NT-Pro-B Natriuret Pep 124 (0-125) pg/mL Triglycerides 213 H (30-150) mg/dL Cholesterol 157 (100-200) mg/dL LDL Cholesterol, Calc 79 (0-100) mg/dL HDL Cholesterol 35 L (40-60) mg/dL Laboratory Tests 09/25/19 09/25/19 09/25/19 Range/Units 10:25 10:25 10:25 WBC 5.3 (4.0-10.2) K/uL RBC 5.02 (4.33-5.41) M/uL Hgb 13.8 (13.1-16.8) g/dL Hct 42.8 (39.0-49.0) % MCV 85.3 (84.0-98.0) fL MCH 27.5 L (28.2-33.3) pg MCHC 32.2 (31.7-36.0) g/dL RDW 13.9 (11.2-14.1) % Plt Count 165 (150-350) K/uL Neut % (Auto) 56.5 (45.0-80.0) % Lymph % (Auto) 30.2 (10.0-50.0) % [place] % (Auto) 9.1 (2.0-14.0) % Eos % (Auto) 4.2 (0.0-5.0) % Baso % (Auto) 0.0 (0.0-2.0) % Neut # (Auto) 2.99 (1.40-7.00) K/uL Lymph # (Auto) 1.60 (0.50-3.50) K/uL [place] # (Auto) 0.48 (0.00-1.00) K/uL Eos # (Auto) 0.22 (0.00-0.50) K/uL Baso # (Auto) 0.00 (0.00-0.20) K/uL PT (9.5-12.0) SEC INR APTT (21.0-31.3) SEC D-Dimer, Quantitative 329 (0-400) ng/mL Sodium 140 (136-145) mmol/L Potassium 3.7 (3.5-5.1) mmol/L Chloride 102 (98-107) mmol/L Carbon Dioxide 31.8 (21.0-32.0) mmol/L BUN 20 H (7-18) mg/dL Creatinine 0.97 (0.51-1.17) mg/dL Est Cr Clr Drug Dosing TNP Estimated GFR (MDRD) > 60 mL/min Glucose 130 H (74-106) mg/dL Hemoglobin A1c (4.3-5.7) % Calcium 8.9 (8.5-10.1) mg/dL Magnesium 1.8 (1.8-2.4) mg/dL Total Bilirubin 0.4 (0.2-1.0) mg/dL AST 26 (15-37) U/L ALT 27 (12-78) U/L Alkaline Phosphatase 38 L (46-116) IU/L Creatine Kinase (26-308) U/L Creatine Kinase Index (0.0-2.5) % CK-MB (CK-2) (0.00-3.60) ng/mL Troponin I 0.000 (0.000-0.056) ng/mL NT-Pro-B Natriuret Pep 61 (0-125) pg/mL Total Protein 7.2 (6.4-8.2) g/dL Albumin 3.4 (3.4-5.0) g/dL Triglycerides (30-150) mg/dL Cholesterol (100-200) mg/dL LDL Cholesterol, Calc (0-100) mg/dL HDL Cholesterol (40-60) mg/dL TSH, Ultra Sensitive (0.358-3.740) mIU/mL 09/25/19 09/25/19 09/26/19 Range/Units 10:25 10:25 07:14 WBC (4.0-10.2) K/uL RBC (4.33-5.41) M/uL Hgb (13.1-16.8) g/dL Hct (39.0-49.0) % MCV (84.0-98.0) fL MCH (28.2-33.3) pg MCHC (31.7-36.0) g/dL RDW (11.2-14.1) % Plt Count (150-350) K/uL Neut % (Auto) (45.0-80.0) % Lymph % (Auto) (10.0-50.0) % [place] % (Auto) (2.0-14.0) % Eos % (Auto) (0.0-5.0) % Baso % (Auto) (0.0-2.0) % Neut # (Auto) (1.40-7.00) K/uL Lymph # (Auto) (0.50-3.50) K/uL [place] # (Auto) (0.00-1.00) K/uL Eos # (Auto) (0.00-0.50) K/uL Baso # (Auto) (0.00-0.20) K/uL PT (9.5-12.0) SEC INR APTT (21.0-31.3) SEC D-Dimer, Quantitative (0-400) ng/mL Sodium 139 (136-145) mmol/L Potassium 4.3 (3.5-5.1) mmol/L Chloride 103 (98-107) mmol/L Carbon Dioxide 30.4 (21.0-32.0) mmol/L BUN 14 (7-18) mg/dL Creatinine 0.96 (0.51-1.17) mg/dL Est Cr Clr Drug Dosing 109.72 Estimated GFR (MDRD) > 60 mL/min Glucose 118 H (74-106) mg/dL Hemoglobin A1c 6.5 H (4.3-5.7) % Calcium 8.6 (8.5-10.1) mg/dL Magnesium (1.8-2.4) mg/dL Total Bilirubin (0.2-1.0) mg/dL AST (15-37) U/L ALT (12-78) U/L Alkaline Phosphatase (46-116) IU/L Creatine Kinase (26-308) U/L Creatine Kinase Index (0.0-2.5) % CK-MB (CK-2) (0.00-3.60) ng/mL Troponin I 0.000 (0.000-0.056) ng/mL NT-Pro-B Natriuret Pep 904 H (0-125) pg/mL Total Protein (6.4-8.2) g/dL Albumin (3.4-5.0) g/dL Triglycerides (30-150) mg/dL Cholesterol (100-200) mg/dL LDL Cholesterol, Calc (0-100) mg/dL HDL Cholesterol (40-60) mg/dL TSH, Ultra Sensitive 1.980 (0.358-3.740) mIU/mL 09/26/19 09/27/19 09/27/19 Range/Units 07:14 07:28 07:28 WBC 6.7 6.6 (4.0-10.2) K/uL RBC 5.35 5.65 H (4.33-5.41) M/uL Hgb 14.5 15.5 (13.1-16.8) g/dL Hct 45.4 47.6 (39.0-49.0) % MCV 84.9 84.2 (84.0-98.0) fL MCH 27.1 L 27.4 L (28.2-33.3) pg MCHC 31.9 32.6 (31.7-36.0) g/dL RDW 14.1 14.4 H (11.2-14.1) % Plt Count 174 173 (150-350) K/uL Neut % (Auto) 63.8 69.9 (45.0-80.0) % Lymph % (Auto) 23.8 20.9 (10.0-50.0) % [place] % (Auto) 7.9 6.1 (2.0-14.0) % Eos % (Auto) 4.2 2.9 (0.0-5.0) % Baso % (Auto) 0.3 0.2 (0.0-2.0) % Neut # (Auto) 4.30 4.61 (1.40-7.00) K/uL Lymph # (Auto) 1.60 1.38 (0.50-3.50) K/uL [place] # (Auto) 0.53 0.40 (0.00-1.00) K/uL Eos # (Auto) 0.28 0.19 (0.00-0.50) K/uL Baso # (Auto) 0.02 0.01 (0.00-0.20) K/uL PT 10.7 (9.5-12.0) SEC INR 1.0 APTT 30.3 (21.0-31.3) SEC D-Dimer, Quantitative (0-400) ng/mL Sodium (136-145) mmol/L Potassium (3.5-5.1) mmol/L Chloride (98-107) mmol/L Carbon Dioxide (21.0-32.0) mmol/L BUN (7-18) mg/dL Creatinine (0.51-1.17) mg/dL Est Cr Clr Drug Dosing Estimated GFR (MDRD) mL/min Glucose (74-106) mg/dL Hemoglobin A1c (4.3-5.7) % Calcium (8.5-10.1) mg/dL Magnesium (1.8-2.4) mg/dL Total Bilirubin (0.2-1.0) mg/dL AST (15-37) U/L ALT (12-78) U/L Alkaline Phosphatase (46-116) IU/L Creatine Kinase (26-308) U/L Creatine Kinase Index (0.0-2.5) % CK-MB (CK-2) (0.00-3.60) ng/mL Troponin I (0.000-0.056) ng/mL NT-Pro-B Natriuret Pep (0-125) pg/mL Total Protein (6.4-8.2) g/dL Albumin (3.4-5.0) g/dL Triglycerides (30-150) mg/dL Cholesterol (100-200) mg/dL LDL Cholesterol, Calc (0-100) mg/dL HDL Cholesterol (40-60) mg/dL TSH, Ultra Sensitive (0.358-3.740) mIU/mL 09/27/19 Range/Units 07:28 WBC (4.0-10.2) K/uL RBC (4.33-5.41) M/uL Hgb (13.1-16.8) g/dL Hct (39.0-49.0) % MCV (84.0-98.0) fL MCH (28.2-33.3) pg MCHC (31.7-36.0) g/dL RDW (11.2-14.1) % Plt Count (150-350) K/uL Neut % (Auto) (45.0-80.0) % Lymph % (Auto) (10.0-50.0) % [place] % (Auto) (2.0-14.0) % Eos % (Auto) (0.0-5.0) % Baso % (Auto) (0.0-2.0) % Neut # (Auto) (1.40-7.00) K/uL Lymph # (Auto) (0.50-3.50) K/uL [place] # (Auto) (0.00-1.00) K/uL Eos # (Auto) (0.00-0.50) K/uL Baso # (Auto) (0.00-0.20) K/uL PT (9.5-12.0) SEC INR APTT (21.0-31.3) SEC D-Dimer, Quantitative (0-400) ng/mL Sodium 142 (136-145) mmol/L Potassium 4.2 (3.5-5.1) mmol/L Chloride 104 (98-107) mmol/L Carbon Dioxide 29.9 (21.0-32.0) mmol/L BUN 13 (7-18) mg/dL Creatinine 0.96 (0.51-1.17) mg/dL Est Cr Clr Drug Dosing 78.18 Estimated GFR (MDRD) > 60 mL/min Glucose 120 H (74-106) mg/dL Hemoglobin A1c (4.3-5.7) % Calcium 9.0 (8.5-10.1) mg/dL Magnesium (1.8-2.4) mg/dL Total Bilirubin (0.2-1.0) mg/dL AST (15-37) U/L ALT (12-78) U/L Alkaline Phosphatase (46-116) IU/L Creatine Kinase 112 (26-308) U/L Creatine Kinase Index 1.0 (0.0-2.5) % CK-MB (CK-2) 1.10 (0.00-3.60) ng/mL Troponin I 0.000 (0.000-0.056) ng/mL NT-Pro-B Natriuret Pep 124 (0-125) pg/mL Total Protein (6.4-8.2) g/dL Albumin (3.4-5.0) g/dL Triglycerides 213 H (30-150) mg/dL Cholesterol 157 (100-200) mg/dL LDL Cholesterol, Calc 79 (0-100) mg/dL HDL Cholesterol 35 L (40-60) mg/dL TSH, Ultra Sensitive (0.358-3.740) mIU/mL Med Orders - Current: Current Medications Aspirin (Aspirin) 325 mg PO DAILY [facility] Last Admin: 09/27/19 07:37 Dose: 325 mg Cetirizine HCl (Zyrtec) 10 mg PO DAILY PRN PRN Reason: Allergies Diltiazem HCl (Cardizem Cd) 180 mg PO QPM [facility] Last Admin: 09/26/19 17:35 Dose: 180 mg Furosemide (Lasix) 40 mg IVPUSH Q12H [facility] Last Admin: 09/26/19 22:24 Dose: Not Given Lisinopril (Prinivil) 10 mg PO BID [facility] Metoprolol Succinate (Toprol Xl) 100 mg PO DAILY [facility] Last Admin: 09/27/19 07:36 Dose: 100 mg Potassium Chloride (Klor-Con M20) 20 meq PO BID [facility] Last Admin: 09/27/19 07:37 Dose: 20 meq Sodium Chloride (Saline Flush) 10 ml FLUSH ASDIRECTED PRN PRN Reason: Keep Vein Open Last Admin: 09/26/19 10:34 Dose: 10 ml Discontinued Medications Diltiazem HCl (Diltiazem) 20 mg IVPUSH ONETIME ONE Stop: 09/25/19 10:29 Last Admin: 09/25/19 10:50 Dose: 20 mg Diltiazem HCl (Cardizem Cd) 120 mg PO ONETIME ONE Stop: 09/25/19 12:44 Last Admin: 09/25/19 15:14 Dose: Not Given Diltiazem HCl (Cardizem Cd) 120 mg PO ONETIME ONE Stop: 09/26/19 12:01 Diltiazem HCl (Cardizem Cd) 120 mg PO ONETIME ONE Stop: 09/25/19 15:01 Last Admin: 09/25/19 15:14 Dose: 120 mg Enoxaparin Sodium (Lovenox) 40 mg SUBCUT ONETIME ONE Stop: 09/26/19 09:58 Last Admin: 09/26/19 10:32 Dose: 40 mg Magnesium Sulfate/Dextrose 1 (gm/ Premix) 100 mls @ 100 mls/hr IV ONETIME ONE Stop: 09/25/19 11:59 Last Admin: 09/25/19 11:32 Dose: 100 mls/hr Sodium Chloride (Normal Saline) 1,000 mls @ 999 mls/hr IV .BOLUS ONE Stop: 09/25/19 12:02 Last Admin: 09/25/19 11:32 Dose: 999 mls/hr Influenza Virus Vaccine (Pharmacy To Dose - Influenza Vaccine) 1 each IM ONETIME ONE Stop: 09/25/19 14:55 Influenza Virus Vaccine (Fluzone Quad [id number] Syringe) 60 mcg IM .ONCE ONE Stop: 09/26/19 08:01 Last Admin: 09/26/19 07:31 Dose: 60 mcg Lisinopril (Prinivil) 10 mg PO QPM [facility] Last Admin: 09/26/19 17:35 Dose: 10 mg - Exam Quality Assessment: Reports: DVT Prophylaxis (Subq Lovenox). Denies: Supplemental Oxygen, Central Line/PICC, Urine Catheter, Skin Breakdown, Restraints General: Reports: Alert, Oriented, Cooperative, No Acute Distress HEENT: Reports: Pupils Equal, Pupils Reactive, EOMI, Mucous Membr. Moist/[place] Neck: Reports: Supple, Trachea Midline, No JVD, No Thyromegaly, +2 Carotid Pulse wo Bruit. Denies: Thyromegaly Lungs: Reports: Clear to Auscultation, Normal Respiratory Effort. Denies: Rub Cardiovascular: Reports: Regular Rate, Regular Rhythm, No Murmurs. Denies: Gallops, Rubs GI/Abdominal Exam: Normal Bowel Sounds, Soft, Non-Tender, No Organomegaly, No Distention, No Abnormal Bruit, No Mass, Other (Obese). No: Guarding (Male) Exam: Deferred Rectal (Males) Exam: Deferred Back Exam: Reports: Normal Inspection, Full Range of Motion. Denies: CVA Tenderness (L), CVA Tenderness (R), Muscle Spasm Extremities: Normal Inspection, Normal Range of Motion, Non-Tender, No Pedal Edema (Resolved), Normal Capillary Refill. No: Danii's Sign Skin: Reports: Warm, Dry, Intact, Other (Multiple tattoos). Denies: Ecchymosis Neurological: Reports: No New Focal Deficit Psy/Mental Status: Reports: Alert, Normal Affect, Normal Mood. Denies: Agitated , Hallucinations, Withdrawal Symptoms EKG INTERPRETATION EKG Date: 09/27/19 Time: 07:16 Rhythm: NSR Rate (Beats/Min): 72 [place]: Normal (Neutral) P-Wave: Present QRS: Wide (0.10 seconds presenting repolarization changes versus borderline incomplete left bundle branch block with new T wave inversion in lead V1) ST-T: Normal QT: Normal IN/PQ Interval: 0.17 seconds with extreme poor R wave progression in the anterior leads Comparison: Change From Previous EKG (Conversion from atrial fibrillation since 09/26/2019) EKG Interpretation Comments: 1. No acute ischemic changes 2. Normal sinus rhythm with previous atrial fibrillation 3. Repolarization changes versus borderline incomplete left bundle branch block
--- NOTE | 2019-09-27 09:41 | PCM.SN ---
- Free Text/Narrative Note: Secondary to problems with [employer] preparation for diltiazem CD should actually be 180 mg tablets rather than 120 mg tablets. Pharmacy was notified.
[2019-09-27] MEDS: Furosemide 40 MG/4 ML VIAL IVPUSH SCH (10:43)
== END 2019-09-27 11:40 | disposition home or self-care (01) ==
LOC: LL.ED 10:05 → LL.MS 12:26 → UNDOADMOB 12:26 → LL.MS 12:29
PROVIDERS: ADMIT Emergency Medicine; ATTEND Family Medicine
DX: I48.91 Unspecified atrial fibrillation (principal); I11.0 Hypertensive heart disease with heart failure; I50.9 Heart failure, unspecified; K21.9 Gastro-esophageal reflux disease without esophagitis; E11.9 Type 2 diabetes mellitus without complications; E78.5 Hyperlipidemia, unspecified; J30.9 Allergic rhinitis, unspecified; E66.9 Obesity, unspecified; Z79.82 Long term (current) use of aspirin; Z79.899 Other long term (current) drug therapy; Z91.013 Allergy to seafood; Z68.42 Body mass index [BMI] 45.0-49.9, adult
CPT/HCPCS: 36415; 71046; 80048; 80053; 80061; 82550; 82553; 83036; 83735; 83880; 84443; 84484; 85025; 85379; 85610; 85730; 90686; 93005; 96361; 96365; 96375; 99285; A9270; J1650; J1940; J3475; J3490; J7030; 96372; G0008; G0378